=== PATIENT | male | born 1995 | race African-American/Black ===

== ENCOUNTER 2023-05-30 16:36 | Emergency (ER) | payer SELFPAY ==
--- OUTSIDE RECORDS SUMMARY | 2023-05-30 16:39 | XMS REPORT | Continuity of Care Document ---
:1995 Author Organization [facility] t Address [address] [place] [address] Care Team Providers Name Role Phone Pcp-None Primary Care Physician Unavailable LEONARDA GUALLPA Attending Clinician Unavailable Natasha Magallon Attending Clinician Unavailable ERIKA Attending Clinician Unavailable Steven ZEPEDA, Sheron Clarke Attending Clinician [phone] ERIKA Admitting Clinician Unavailable Payers Payer Name Policy Type Policy Number Effective Date Expiration Date S [place] [id number] 2016 2022 00:00:00 [place]PPO[place] 00:00:00 Problems Condition Condition Condition Status Onset Resolution Last Treating Co mments Source Name Details Category Date Date Treatment Clinician Date Homeless Homeless Disease Active Overview: [facility] g of this note might be different from the original. Resides at [facility]. Allergies, Adverse Reactions, Alerts Allergy Allergy Status Severity Reaction(s) Onset Inactive Treating Comm ents Source Name Type Date Date Clinician No Known DA Active U [facility] 04-02 Allergie 00:00: s 00 Social History Social Habit Start Date Stop Date Quantity Comments Source Sexual orientation [facility] History of tobacco Smokes tobacco [facility] use daily History of Social 2023-05-07 2023-05-07 [facility] function 00:00:00 00:00:00 Tobacco use and 2021-04-07 2021-04-07 Smokeless tobacco [facility] exposure 00:00:00 00:00:00 non-user Alcohol intake 2021-04-07 2021-04-07 Lifetime [facility] 00:00:00 00:00:00 non-drinker (finding) Sex Ass[birth year] At [birth year] Ron [facility] al[facility] 00:00:00 00:00:00 Smoking Status Start Date Stop Date Source Unknown if ever smoked [facility] Smokes tobacco daily 2021-04-07 00:00:00 [facility] Medications Ordered Filled Start Stop Current Ordering Indication Dosage Frequency Signature Comments Components Source Medication Medication Date Date Medication? Clinician (SIG) Name Name nicotine Yes 2mg Place 2 mg Yosvany ris polacrilex 4-[address] [facility] (NICORETTE) 18:27: cheek 2 mg Gum 59 every 2 hours. sulfamethox Yes 1{tbl} Take 1 Tab Univers azole-trime 6-27 by mouth ity of thoprim 00:00: every 12 [place] (BACTRIM 00 (twelve) Medical DS) 800-160 hours. Branch mg tablet proMETHazin Yes 25mg Take 1 Tab Univers e 6-27 by mouth ity of (PHENERGAN) 00:00: every 6 Berny as 25 mg 00 (six) Medical tablet hours as Branch needed for Nausea and Vomiting (N/V). traMADOL Yes 50mg Take 1 Tab Uni vers (ULTRAM) 50 6-27 by mouth ity of mg tablet 00:00: every 6 [place] 00 (six) Medical hours as Branch needed for Pain unrelieved by non-narcot ic analgesics . Immunizations Ordered Immunization Filled Immunization Date Status Commen ts Source Name Name PPD Unknown Completed [facility] Vital Signs Vital Name Observation Time Observation Value Comments Source Systolic blood 2019-08-21 00:09:00 146 mm[Hg] [facility] Diastolic blood 2019-08-21 00:09:00 88 [facility]Hg[facility] rate 2019-08-21 00:09:00 99 /min [facility] Respiratory rate 2019-08-21 00:09:00 14 /min [facility] Oxygen saturation in 2019-08-21 00:09:00 99 /min [facility] Arterial blood by [facility] Pulse oximetry Branch Body temperature 2019-08-20 23:02:00 37.17 Asia [facility] Body weight 2019-08-20 23:02:00 65.772 kg [facility] Procedures Procedure Date / Time Performing Clinician Source Performed URINALYSIS 2019-08-20 23:48:00 [facility]on [facility] COMP. METABOLIC PANEL 2019-08-20 23:47:00 Sheron Harris [facility] ([id number]) [facility] CBC WITH DIFFERENTIAL 2019-08-20 23:47:00 Sheron Harris [facility] ADC / LCC - DRUG SCREEN 2019-08-20 23:47:00 [facility] Plan of Care Planned Activity Planned Date Details Comments Source Future Scheduled Test 2023-03-04 IMM Influenza Seasonal [facility] 00:00:00 (>/= 19 yrs) [code = IMM Influenza Seasonal (>/= 19 yrs)] Future Scheduled Test 2002-02-01 Imm Pneumococcal 0-64 [facility] 00:00:00 (1 - PCV) [code = Imm Pneumococcal 0-64 (1 - PCV)] Future Scheduled Test 1995 COVID-19 Vaccine (#1) [facility] 00:00:00 [code = COVID-19 Vaccine (#1)] Encounters Start End Encounter Admission Attending Care Care Encounter Source Date/Time Date/Time Type Type Clinicians Facility Department ID 2021-04-02 Inpatient [facility] [id number] [facility] 10:27:00 62 2021-04-09 2021-04-[address] [facility] [id number] [place] 10:01:32 10:01:[address] [facility] 2021-04-07 2021-04-07 Outpatient [facility] [id number] [place] 11:03:11 13:34:09 [facility] 2021-04-02 2021-04-02 Emergency [facility] [id number] [facility] 10:27:00 10:27:00 62 2021-04-02 2021-04-[address] [place] [address] [id number] [place] 09:13:10 09:36:10 Health 2021-04-02 2021-04-02 Outpatient [facility] [id number] [place] 09:13:10 09:36:10 [facility] 2021-04-02 2021-04-02 Outpatient [facility] [id number] [place] 00:00:00 00:00:00 [facility] 2020-09-02 2020-09-02 Outpatient ERIKA [facility] 1017 [place] 10:06:00 10:06:00 0[facility] 2020-09-01 2020-09-01 Outpatient SIVA_R [facility] 1017 [place] 05:22:00 05:22:00 0301 [facility] 2019-08-20 2019-08-20 Emergency [place] [facility] [id number] [facility] 17:04:41 19:12:00 , Sheron Valdovinos [id number] i ty of Tricia Salcido [id number] [facility] [id number] [facility] 084 Branch Results Test Description Test Time Test Comments Results Result Comments Source SARS-CoV-2 ORF1ab Resp Ql SHARAD+probe 2021-04-02 15:18:32 Test Item Value Reference Range Interpretation Comme nts Symptomatic as defined by CDC? No (test code = 14082-2) Hospitalized? (test code = No 86793-4) ICU? (test code = 47640-3) No Employed in Healthcare? (test No code = 46716-5) Resident in a congregate care Yes setting (including nursing homes, residential care for people with intellectual and developmental disabilities, psychiatric treatment facilities, group homes, board and care homes, homeless group home, foster care or other): (test code = 36515-2) SARS-CoV-2 ORF1ab Resp Ql NOT DETECTED Not Detected IN TERPRETATION: No SHARAD+probe (test [place] = [place] [address]-9) SARS-CoV-2 Curtis navirus (COVID-19) were present in this patient's sample by this test. A no t detected result does not exclude the possibility of active infection with this virus due to other fa ctors that may affect the results such as a poorly col lected sample, viral t iters below the limit of de tection of the assay, and the infrequent poss ibility of inhibitors in t he sample. This result kalen uld be interpreted in conjunction with clinical, radiographic, a nd other laboratory find ings and should not be u sed as the sole indicator of active infection with SARS-CoV-2 Coronavirus (CO VID-19). COMMENT: This [employer] SARS-CoV-2 molecular diagnostic assay utilizes Paring Machine Operator Mediated Amplification (TMA) technology to rapidly detect the SARS-CoV-2 (COVID-19) virus from respiratory samples. In accordance with the FDA's guidance document "Policy for Diagnostic Tests for Coronavirus Disease- 2019 during the Public Health Emergency", this test was developed, and its performance characteristics were verified by the [facility] molecular diagnostics laboratory and is authorized for clinical diagnostic use. This laboratory is certified under the Clinical Laboratory Improvement Amendments (CLIA) as qualified to perform high complexity clinical laboratory testing.HHSUA, Urinalysis Rflx Cult/[id number] 10:50:00 Test Item Value Reference Range Interpretation Comments Color,Urine (test code = Yellow Y UCOL) Clarity,Urine (test code = Clear Clear UCLAR) PH,Urine (test code = 7.5 5.5-8.5 UPH.XX) Specific [place],Urine 1.025 1.005-1.030 N (test code = USG) Blood,Urine (test code = Negative cells/uL Negative UBLD) Protein,Urine (test code = Negative mg/dL Negative UPRO) Glucose,Urine (UA) (test Negative mg/dL Negative code = UGLU) Ketones,Urine (test code = Negative mg/dL Negative UKET) Nitrate,Urine (test code = Negative Negative UNIT) Bilirubin,Urine (test code Negative mg/dL Negative = UBIL) Urobilinogen,Urine (test 1.0 mg/dL Negative code = UURO) Leukocyte Esterase,Urine Negative cells/uL Negative (test code = ULEU) ADC / C - DRUG SCREEN [id number] 00:34:00 Test Item Value Reference Range Interpretation Comments BENZO U (test code = Negative Negative 8384156048) ALYSSA U (test code = Negative Negative 5301391388) AMPHET (test code = Presumptive Positive Negative A 1131419268) THC (test code = Negative Negative 7061372965) METHADONE (test code = Negative Negative 6281715536) Meth U (test code = Presumptive Positive Negative A 1186323488) OPIATES (test code = Negative Negative 7831416117) Cocaine Metabolite (test Negative Negative code = 9516915710) PROPOXY (test code = Negative Negative 6686480332) Tric U (test code = Negative Negative 5548901891) PCP (test code = Negative Negative 1090156163) OXYCOD (test code = Negative Negative 6267776268) ZANDER (test code = ZANDER) Urine Drug Cutoff Ranges Benzodiazepines: ? ? 150 ng/mLBarbiturates: ?200 ng/mLAmphetamine: ? 500 ng/mLCannabinoids: ?50 ?ng/mLMethadone: ? 200 ng/mLMethamphetamine: ? ? 500 ng/mL Opiates: ? 100 ng/mL or 2000 ng/mLCocaine: ? 150 ng/mLPropoxyphene: ?300 ng/mLTricyclics: ?300 ng/mLOxycodone: ? 100 ng/mLPCP: ? 25 ?ng/mL The results are to be used only for medical (i.e., treatment) purposes. Unconfirmed screening results must not be used for non-medical purposes (e.g., employment testing, legal testing). Lab Interpretation (test Abnormal code = 58878-2) [facility] Test Item Value Reference Range Interpretation Comments APPEARANCE (test code = Clear Clear 2333207159) COLOR (test code = Yellow Yellow 1814652357) PH (test code = 4.8-8.0 1335023514) SP GRAVITY (test code = 1.003-1.030 3504356157) GLU U QUAL (test code = Normal Normal 6492565585) BLOOD (test code = Negative Negative 2688230523) KETONES (test code = 20 mg/dL Negative A 5242776893) PROTEIN (test code = Negative Negative 2887-8) UROBILIN (test code = 4.0 mg/dL Normal A 9994735176) BILIRUBIN (test code = Negative Negative 9924971373) NITRITE (test code = Negative Negative 2793770960) LEUK JONATHON (test code = Negative Negative 1839833241) RBC/HPF (test code = See_Comment [Autom ated message] 4800317414) The system [employer] generated this result transmit jeromy reference range : 0 - 3 HPF. The refe rence range was not u sed to interpret th is result as normal/abnormal . WBC/HPF (test code = See_Comment [Autom ated message] 1831825527) The system [employer] generated this result transmit jeromy reference range : 0 - 5 HPF. The refe rence range was not u sed to interpret th is result as normal/abnormal . BACTERIA (test code = Negative Negative 8850568701) MUCOUS (test code = Slight Negative LPF A 5174326909) Lab Interpretation (test Abnormal code = 44921-8) [facility]. METABOLIC PANEL (58024)2019-08-21 00:16:00 Test Item Value Reference Range Interpretation Comments NA (test code = 137 mmol/L 135-145 8836521793) K (test code = 3.7 mmol/L 3.5-5 5389337571) CL (test code = 101 mmol/L 98-108 1730369235) CO2 TOTAL (test code = 24 mmol/L 23-31 0662546822) AGAP (test code = 2-16 2841881638) BUN (test code = 25 mg/dL 7-23 H 6495195926) GLUCOSE (test code = 114 mg/dL 70-110 H 7993097530) CREATININE (test code = 1.02 mg/dL 0.6-1.25 8759619160) TOTAL BILI (test code = 0.7 mg/dL 0.1-1.6 1986203320) CALCIUM (test code = 9.4 mg/dL 8.6-10.6 3339832771) T PROTEIN (test code = 7.7 g/dL 6.3-8.2 9944761116) ALBUMIN (test code = 5.0 g/dL 3.5-5 0958152038) ALK PHOS (test code = 92 U/L 34-122 2590715194) ALTv (test code = 23 U/L 5-50 1742-6) AST(SGOT) (test code = 46 U/L 13-40 H 4812149129) eGFR Calculation mL/min/1.73m2 (Non-) (test code = 2532995489) eGFR Calculation mL/min/1.73m2 () (test code = 0925598953) ZANDER (test code = ZANDER) Association of Glomerular Filtration Rate (GFR) and Staging of Kidney Disease* + --+ --+ ------+| GFR (mL/min/1.73 m2) ?| With Kidney Damage ?| ?Without Kidney Damage+ --------+ --------+ +| ?>90 ?| ?Stage one ?| ? Normal ?+ ---+ ---+ -------+| ?60-89 ?| ?Stage two ?| ? Decreased GFR ? + --+ --+ ------+| ?30-59 ?| ?Stage three ?| ? Stage three ? + --+ --+ ------+| ?15-29 ?| ?Stage four ? | ? Stage four ?+ ---+ ---+ -------+| ?<15 (or dialysis) ? ?| ?Stage five ? | ? Stage five ?+ ---+ ---+ -------+ *Each stage assumes the associated GFR level has been in effect for at least three months. ?Stages 1 to 5, with or without kidney disease, indicate chronic kidney disease. Notes: Determination of stages one and two (with eGFR >59mL/min/1.73 m2) requires estimation of kidney damage for at least three months as defined by structural or functional abnormalities of the kidney, manifested by either:Pathological abnormalities or Markers of kidney damage (including abnormalities in the composition of the blood or urine or abnormalities in imaging tests). Lab Interpretation Abnormal (test code = 72281-8) [facility] WITH [id number] 00:08:00 Test Item Value Reference Range Interpretation Comments WBC (test code = See_Comment H [Automated 6819-2) message] The sy stem which generated this result transmitted reference range : 4.20 - 10.70 10*3/?L. The reference range was not used to interpret this result as normal/abnormal . RBC (test code = See_Comment [Automated 449-8) message] The sy stem which generated this result transmitted reference range : 4.26 - 5.52 10*6/?L. The reference range was not used to interpret this result as normal/abnormal . HGB (test code = 14.9 g/dL 12.2-16.4 718-7) HCT (test code = 43.9 % 38.4-49.3 4544-3) MCV (test code = 86.4 fL 81.7-95.6 787-2) MCH (test code = 29.3 pg 26.1-32.7 785-6) MCHC (test code = 33.9 g/dL 31.2-35 786-4) RDW-SD (test code = 40.9 fL 38.5-51.6 09432-4) RDW-CV (test code = 13.0 % 12.1-15.4 788-0) PLT (test code = See_Comment [Automated 777-3) message] The sy stem which generated this result transmitted reference range : 150 - 328 10*3/ ?L. The reference r rickie was not used to interpret this result as normal/abnormal . MPV (test code = 10.2 fL 9.8-13 09295-1) NRBC/100 WBC (test See_Comment [Automat ed code = 8175090982) message] The system which generated this result transmitted reference range : 0.0 - 10.0 /100 WBCs. The refer ence range was not u sed to interpret th is result as normal/abnormal . NRBC x10^3 (test code <0.01 See_Comment [Auto mated = 6373952951) message] The s ystem which generated this result transmitted reference range : 10*3/?L. The reference range was not used to interpret this result as normal/abnormal . GRAN MAT (NEUT) % 76.5 % (test code = 770-8) IMM GRAN % (test code 0.30 % = 5445270398) LYMPH % (test code = 14.6 % 736-9) MONO % (test code = 6.7 % 5905-5) EOS % (test code = 0.9 % 713-8) BASO % (test code = 1.0 % 706-2) GRAN MAT x10^3(ANC) 9.03 10*3/uL 1.99-6.95 H (test code = 4783707207) IMM GRAN x10^3 (test 0.04 10*3/uL 0-0.06 code = 9680707599) LYMPH x10^3 (test code 1.73 10*3/uL 1.09-3.23 = 731-0) MONO x10^3 (test code 0.79 10*3/uL 0.36-1.02 = 742-7) EOS x10^3 (test code = 0.11 10*3/uL 0.06-0.53 711-2) BASO x10^3 (test code 0.12 10*3/uL 0.01-0.09 H = 704-7) Lab Interpretation Abnormal (test code = 21478-8) [facility] [address] [place] [address] Patient Name: Claire Chou Medical Record#: [id number] Address: [address] [place] [address] City/State/Zip: [place] [address]: Natasha Magallon MD Insurance: Self Pay /Age/Sex: 1995/26/M Admit/Reg Date: 04/02/[address]: Willie Tabares NP Lo cation: SJMED/ PCP: PcpMd DUANE Poon Date of Service: 04/02/21 Order (s): CT abdomen pelvis wo con CPT Code: 66871 Report Number: [id number] Reason for Exam: Flank Pain EXAMINATION: CT abdomen pelviswo con CLINICAL INDICATION: Male, 26 years old with Flank Pain TECHNIQUE: Thin section axial noncontrast contiguous images were obtained through the abdomen and pelvis followed by coronal and sagittal multiplanar reformations. One or more of the following dose reduction techniques were used: Automatedexposure control, adjustment of the mA and/or kV according to patient size, and/or iterative reconstruction. COMPARISON: None FINDINGS: Characterization of the solid organs is limited by lack of contrast media. Lower Chest: Partially calcified granuloma noted within the left lower lobe. Heart is normal in size. No pericardial or pleural effusion. Liver: Normal in size and contour. Bile ducts are of normal caliber. Gallbladder: No stones, wall thickening, or pericholecystic fluid. Pancreas: Normal appearance. Spleen: Normal in size and contour. Adrenals: Normal configuration. Kidneys and ureters: Normal size and contour. No calculus or hydronephrosis. Bladder/Reproductive Organs: Normal in appearance. Unremarkable reproductive organs Bowel: Loops of bowel without wall thickening or obstruction. Normal appendix. No free air, free fluid, or fluid collection. Lymph nodes: There are no pathologicallyenlarged abdominopelvic lymph nodes. Retroperitoneum: No mass or hemorrhage. Abdominal aorta and inferior vena cava are normal in course and caliber. Abdominal wall: No hernia or mass. Bones: No acute abnormality or suspicious bony lesion. IMPRESSION: No acute abdominopelvic abnormality. Electronically signed by: Yobani Mackey MD 04/02/2021 12:28 PM CDT Dictated By: Yobani Mackey MD 04/02/211214 Signed By: Yobani Mackey MD 04/02/215 TD/TT: 04/02/211214 Tech: [facility] cc: OCAAL; PCPNO* Willie Tabares NP; Pcp-Md DUANE Betancourt Notes Date/Time Note Provider Source 2021-04-02 10:50:00 [id number]:50:00 [facility] [address] [place] [address] Emergency Department Document Signed Patient: Claire Chou Medical Record#: [id number] : 1995 Acct:[id number] Age/Sex: 26 / M Admit/Reg Date: 04/02/21 Loc: [facility] Room: Report Number: [id number] Attending Dr: Natasha Magallon MD Arrival - Arrival ED Triage Note: patient c/o right flank pain for past 2 days. denies any injury. no active vomiting History of Present Illness Nursing note reviewed: Yes Source: patient Exam/History Limitations: no limitations Primary Care Provider: Pcp-Md Serafin Chief Complaint: Abdominal Pain Stated Complaint : Side Flank Pain History of Present Illness: 26-year-old male without significant past medica l history, presents with complain of right flank pain, onset of symptoms 2 days ago. Pain radiate s from right flank area to right lateral abdomen, pain is intermittently, comes and goes. Patient reports straining during urination. No dysuria, no hematuria. Patient denies fever or chills. No nausea, no vomiting. Awake, alert, and oriented, ambulatory, in no acute distress. (Willie Tabares ) Allergies/Adverse Reactions: No Known Drug Allergies Allergy (Verified 04/02/21 10:30) Review of Systems All Other Systems (except as marked in HPI): Reviewed and Negative Family/Social History - Social History Living Situation: Private Home Smoking Status: Current some day smoker Smoked/Used Tobacco in the Last 30 Days?: Yes 1. How Often Do You Have a Drink Containing Alcohol: a. Never Physical Exam General Appearance: NAD Head: Atraumatic, Normocephalic Eyes: PERRL, EOMI Mouth/Throat: Mucosa moist, Pharynx normal, Uvula midline Respiratory: No respiratory distress, Lungs clear, No accessory muscle use Cardiovascular: R/R/R, No Murmurs, No S3/S4 gallops Abdominal: Soft, Non-tender, Non-distended, No organomegaly , No guarding, No Rebound tenderness Back: R CVAT Extremity/Musculoskeletal: No edema Skin: Warm, Dry Psych: Calm, No SI/HI Neuro: A O X 3, Nonfocal, Motor grossly normal, Sensory grossly normal, Gait normal, Cerebellar nl, DTR's grossl y nl, Speech fluent, CN 2-12 intact, No pronator drift Triage Vital Signs: Temperature 36.4 C 04/02/21 10:30 Temperature Source Oral 04/02/21 10:30 Pulse Rate 67 04/02/21 10:30 Blood Pressur e 128/76 04/02/21 10:30 Blood Pressure Source Automatic Cuff 04/02/21 10:30 Blood Pressure Dory n 93 04/02/21 10:30 02 Sat by Pulse Oximetry 98 04/02/21 10:30 Oxygen Delivery Method 04/02/21 10:30 Pain Intensity 8 04/02/21 10:30 Results/Orders - Results and Orders Lab Testing Results 04/02/21 10:50: Urine Color Yellow, Urin e Clarity Clear, Urine pH 7.5, Ur Specific [place] 1.025, Urine Protein Negative, Urine Glucose (UA ) Negative, Urine Ketones Negative, Urine Blood Negative, Urine Nitrate Negative, Urine Bilirubi n Negative, Urine Urobilinogen 1.0, Ur Leukocyte Esterase Negative Radiology Orders: Radiology Orders 04/02/21 10:44 CT abdomen pelvis wo con Stat MDM/COURSE Vital Signs Temperature 36.4 C 04/02/21 10:30 Pulse Rate 67 04/02/21 10:30 Bloo d Pressure 128/76 04/02/21 10:30 02 Sat by Pulse Oximetry 98 04/02/21 10:30 Temperature 36.4 C 04/02/21 10:30 Pulse Rate 67 04/02/21 10:30 Bloo d Pressure 128/76 04/02/21 10:30 02 Sat by Pulse Oximetry 98 04/02/21 10:30 - [facility] Medical Decisio n Making Narrative: 04/02/21 12:54 CT scan showed no evidence of kidney stones or other acute abnormalities, urinalysis no evidence ofUTI. Patient's abdomen is soft and nontender, no nausea or vomiting, no skin rashes, likely musculoskeletal pain. Notified findings, Recommended to follow-up with PCP/[facility] for re-evaluation Instructed to return to the ED if current symptoms worsen (Willie Tabares ) Discharge Plan - Discharge Clinical Impression: Right flank pain Disposition: Home or Self-Care Condition: Good Instructions: ED Flank Pain, Uncertain Cause Prescriptions: New naproxen 500 MG tablet 500 mg PO BID 7 Days Qty: 14 RF: 0 Prescription Printed Referrals: [facility] [Other] Pcp-Sreafin,MD Duane [Primary Care Provider] - Print Language: Gambian - Discharge Data Time Seen by Provider: 04/02/21 10:28 Dictated By: Willie Tabares NP Signed By: Willie Tabares NP 04/02/21 1527 Natasha Magallon MD 04/04/21 1033 DD/ 1050 TD/TT: 04/02/21 1050 Coagulator: GOGO cc: SARAI* Pcp-Md Sunita Betancourt Physician DocumentationPerry BolesEguglrTxaztaOmvfuc4504-33-63Y55:50:00P.EDAVAvail a ble for patient catgMBRCXVqRJIXm1313-89-31L60:35:02
[2023-05-30] MEDS ORDERED: IBUPROFEN 400 MG TAB ONE (17:49)
[2023-05-30] MEDS ORDERED: LIDOCAINE 2% MPF 5 ML VIAL ONE (17:49)
--- NOTE | 2023-05-30 18:21 | RAD REPORT ---
EXAM DESCRIPTION: RAD - Foot Left 2 View - 05/30/2023 5:17 pm CLINICAL HISTORY: foreign body COMPARISON: No comparisons TECHNIQUE: Left foot, 3 views. FINDINGS: Triangular radiopaque 1.5 cm body along the lateral midfoot soft tissues. Adjacent soft ti ssue swelling. No fracture, dislocation or periosteal reaction. Joint alignment is maintained. No suspicious osseous lesions. IMPRESSION: Lateral midfoot foreign body as above. Adjacent tissue swelling.
--- NOTE | 2023-05-30 19:18 | EDPHYS ---
Physician Documentation [facility] Name: Claire Chou Age: 28 yrs Sex: Male : 1995 Arrival Date: 05/30/2023 Time: 16:36 Bed 10 Private MD: ED Physician Yobani Curry HPI: 05/30 17:00 This 28 yrs old Black Male presents to ER via Ambulatory with complaints of Foreign cp body in foot. 17:00 The patient presents with a puncture wound, piece of glass. The complaints affect the cp lateral side of left foot. 17:00 Associated signs and symptoms: The patient has no apparent associated signs or symptoms.cp 17:00 Context: reports broken glass found in bed caused injury and concerned that piece of cp glass remains in foot. Onset: The symptoms/episode began/occurred today. Historical: - Allergies: 16:48 No Known Allergies; mb9 - Home Meds: 16:48 None [Active]; mb9 - PMHx: 16:48 None; mb9 - PSHx: 16:48 None; mb9 - Immunization history:: Adult Immunizations up to date. - Social history:: Smoking status: Patient denies any tobacco usage or history of. ROS: 17:05 MS/extremity: Positive for puncture, of the lateral side of left foot, foreign body, cp 17:05 All other systems are negative, cp Exam: 17:10 Constitutional: The patient appears in no acute distress, alert, awake, well developed, cp well nourished, uncomfortable, 17:10 Head/Face: Normocephalic, atraumatic. cp 17:10 Chest/axilla: Inspection: normal, 17:10 Cardiovascular: Rate: normal, 17:10 Respiratory: the patient does not display signs of respiratory distress, Respirations: normal, no use of accessory muscles, no retractions, labored breathing, is not present, 17:10 Abdomen/GI: Inspection: abdomen appears normal, 17:10 Musculoskeletal/extremity: Extremities: noted in the left foot: puncture wound noted dorsum, lateral side mid fifth metatarsal with mild bleeding, palpable foreign body under skin noted, Vital Signs: 16:48 BP 128 / 86; Pulse 87; Resp 18; Temp 98; Pulse Ox 100% ; Weight 70.31 kg; Height 5 ft. mb9 9 in. ; Pain 5/10; 19:16 BP 141 / 94; Pulse 78; Resp 16; Pulse Ox 100% on R/A; me1 16:48 Body Mass Index 22.89 (70.31 kg, 175.26 cm) mb9 16:48 Pain Scale: Adult mb9 Procedures: 21:59 Foreign Body Removal: a fragment of glass, from the left left foot, by using a rt hemostat, Dressing: none, The patient tolerated the removal well. MDM: 16:50 Patient medically screened. cp 18:00 Differential diagnosis: fracture, foreign body, puncture wound. 19:16 Data reviewed: vital signs, nurses notes, radiologic studies, plain films. 19:16 I considered the following discharge prescriptions or medication management in the emergency department Medications were administered in the Emergency Department. See MAR. Counseling: I had a detailed discussion with the patient and/or guardian regarding the historical points, exam findings, and any diagnostic results supporting the discharge/admit diagnosis, radiology results, to return to the emergency department if symptoms worsen or persist or if there are any questions or concerns that arise at home. Response to treatment: the patient's symptoms have markedly improved after treatment, and as a result, I will discharge patient. Special discussion: I discussed in detail with the patient the higher chance of wound infection based on his presenting history. 05/30 16:55 Order name: XRAY Foot LEFT 2 View 05/30 18:34 Order name: XRAY Foot LEFT 2 View 05/30 19:16 Order name: Wound dressing; Complete Time: 19:24 cp Administered Medications: 17:41 Drug: Ibuprofen PO 800 mg PO once Route: PO; me1 19:22 Follow up: Response: No adverse reaction; Pain is decreased me1 17:41 Drug: Lidocaine-Epinephrine Infiltration -2 % (1:100,000) 10 ml Infiltration once; to me1 bedside {Note: by YOUNG Persaud.} Route: Infiltration; 19:24 Drug: Trimethoprim-Sulfamethoxazole PO (160 mg-800 mg (DS) 1 tablet PO once Route: PO; me1 19:33 Follow up: Response: No adverse reaction me1 Disposition: 21:59 Co-signature as Attending Physician, Yobani Curry MD I reviewed the patient's care rt provided by Advanced Practice Provider \T\ agree w/ the diagnosis \T\ care plan. I personally saw the pt \T\ performed a substantive portion of the visit, incldng all aspects of the (History/Exam/Medical Decision Making). I evaluated the patient's foot, x-ray. I personally remove the foreign body, it appears to be intact.. Disposition Summary: 05/30/23 19:17 Discharge Ordered Notes: Location: Home cp Problem: new cp Symptoms: have improved cp Condition: Stable cp Diagnosis - Puncture wound with foreign body, left foot cp Followup: cp - With: Emergency Department - When: As needed - Reason: Worsening of condition Discharge Instructions: - Discharge Summary Sheet cp - Puncture Wound cp - Hand or Foot Foreign Body, Adult cp Forms: - Medication Reconciliation Form cp - Thank You Letter cp - Antibiotic Education cp - Prescription Opioid Use cp - Patient Portal Instructions cp - Leadership Thank You Letter cp Prescriptions: - Ibuprofen 800 mg Oral Tablet - take 1 tablet ORAL route every 8 hours As needed take with food; 30 tablet; cp Refills: 0, Product Selection Permitted - Bactrim DS 800-160 mg Oral Tablet - take 1 tablet ORAL route every 12 hours for 7 days; 14 tablet; Refills: 0, cp Product Selection Permitted Addendum: 05/31/2023 20:23 Co-signature as Attending Physician, Yobani Curry MD I reviewed the patient's care r t provided by the Advanced Practice Provider and agree with the diagnosis and treatment plan. Signatures: Dispatcher [employer] Jj Hackett PA PA cp Breneman, Mary Beth RN RN mb9 Yobani Curry MD MD rt Maribel Spicer RN RN me1
--- NOTE | 2023-05-30 19:18 | ER ---
Nurse's Notes [facility] Name: Claire Chou Age: 28 yrs Sex: Male : 1995 Arrival Date: 05/30/2023 Time: 16:36 Bed 10 Private MD: Diagnosis: Puncture wound with foreign body, left foot Presentation: 05/30 16:48 Chief complaint: Patient states: "I woke up this morning and I think there is a piece mb9 of glass in my left foot". Coronavirus screen: At this time, the client does not indicate any symptoms associated with coronavirus-19. Ebola Screen: No symptoms or risks identified at this time. Initial Sepsis Screen: Does the patient meet any 2 criteria? No. Patient's initial sepsis screen is negative. Does the patient have a suspected source of infection? No. Patient's initial sepsis screen is negative. Risk Assessment: Do you want to hurt yourself or someone else? Patient reports no desire to harm self or others. Onset of symptoms was May 30, 2023. 16:48 Method Of Arrival: Ambulatory mb9 16:48 Acuity: JAYE 4 mb9 Triage Assessment: 16:49 General: Appears in no apparent distress. Behavior is calm, cooperative. Pain: mb9 Complains of pain in left foot. EENT: No signs and/or symptoms were reported regarding the EENT system. Neuro: Fischer Agitation-Sedation Scale (RASS): 0 - Alert and Calm Level of Consciousness is awake, alert, obeys commands, Oriented to person, place, time, situation, Appropriate for age. Cardiovascular: Patient's skin is warm and dry. Respiratory: Airway is patent Respiratory effort is even, unlabored, Respiratory pattern is regular, symmetrical. GI: No signs and/or symptoms were reported involving the gastrointestinal system. : No signs and/or symptoms were reported regarding the genitourinary system. Derm: Skin is pink, warm \\T\\ dry. Musculoskeletal: Range of motion: intact in all extremities. Historical: - Allergies: 16:48 No Known Allergies; mb9 - Home Meds: 16:48 None [Active]; mb9 - PMHx: 16:48 None; mb9 - PSHx: 16:48 None; mb9 - Immunization history:: Adult Immunizations up to date. - Social history:: Smoking status: Patient denies any tobacco usage or history of. Screenin:06 [facility] ED Fall Risk Assessment (Adult) History of falling in the last 3 months, me1 including since admission No falls in past 3 months (0 pts) Confusion or Disorientation No (0 pts) Intoxicated or Sedated No (0 pts) Impaired Gait No (0 pts) Mobility Assist Device Used No (0 pt) Altered Elimination No (0 pt) Score/Fall Risk Level 0 - 2 = Low Risk Maintained a safe environment, Provided non-skid footwear, Hourly rounding (assess needs \\T\\ fall precautionary measures) done. Abuse screen: Denies threats or abuse. Nutritional screening: No deficits noted. Tuberculosis screening: No symptoms or risk factors identified. Assessment: 18:06 General: Appears uncomfortable, well groomed, well developed, well nourished, Behavior me1 is calm, cooperative, appropriate for age, Reports "I woke up this morning and I think there is a piece of glass in my left foot". Pain: Complains of pain in left foot Pain does not radiate. Pain currently is 7 out of 10 on a pain scale. Quality of pain is described as sharp, stabbing, Pain began suddenly, this morning about 7 am. Is continuous. Neuro: Level of Consciousness is awake, alert, obeys commands, Oriented to person, place, time, situation, Appropriate for age. Cardiovascular: Capillary refill < 3 seconds Patient's skin is warm and dry. Respiratory: Airway is patent Respiratory effort is even, unlabored, Respiratory pattern is regular, symmetrical. Derm: Wound noted left foot Wound is small wound with a piece of glass in lateral side of left foot. Vital Signs: 16:48 BP 128 / 86; Pulse 87; Resp 18; Temp 98; Pulse Ox 100% ; Weight 70.31 kg; Height 5 ft. mb9 9 in. ; Pain 5/10; 19:16 BP 141 / 94; Pulse 78; Resp 16; Pulse Ox 100% on R/A; me1 16:48 Body Mass Index 22.89 (70.31 kg, 175.26 cm) mb9 16:48 Pain Scale: Adult mb9 ED Course: 16:39 Patient arrived in ED. mr 16:41 Jj Maldonado PA is PHCP. cp 16:41 Yobani Curry MD is Attending Physician. cp 16:47 Arm band placed on. mb9 16:49 Triage completed. mb9 17:18 XRAY Foot LEFT 2 View In Process Unspecified. EDMS 17:31 Maribel Spicer, RN is Primary Nurse. me1 18:06 Patient has correct armband on for positive identification. Bed in low position. Call me1 light in reach. Side rails up X 1. Provided Education on: POC.Verbalized understanding.. 18:06 No provider procedures requiring assistance completed. Patient did not have IV access me1 during this emergency room visit. 19:02 XRAY Foot LEFT 2 View In Process Unspecified. EDMS Administered Medications: 17:41 Drug: Ibuprofen PO 800 mg PO once Route: PO; me1 19:22 Follow up: Response: No adverse reaction; Pain is decreased me1 17:41 Drug: Lidocaine-Epinephrine Infiltration -2 % (1:100,000) 10 ml Infiltration once; to me1 bedside {Note: by YOUNG Persaud.} Route: Infiltration; 19:24 Drug: Trimethoprim-Sulfamethoxazole PO (160 mg-800 mg (DS) 1 tablet PO once Route: PO; me1 19:33 Follow up: Response: No adverse reaction me1 Medication: 18:06 VIS not applicable for this client. me1 Outcome: 19:17 Discharge ordered by MD. cp 19:33 Discharged to home ambulatory, with family, me1 19:33 Condition: stable 19:33 Discharge instructions given to patient, family, Instructed on discharge instructions, follow up and referral plans. medication usage, Demonstrated understanding of instructions, follow-up care, medications, Prescriptions given X 2, 19:33 Patient left the ED. me1 Signatures: Dispatcher [employer] EDMO Qi Chand, Reg Reg mr Jj Maldonado PA PA cp Breneman, Mary Beth, RN RN mb9 Maribel Spicer, LUCY RN me1 Corrections: (The following items were deleted from the chart) 18:06 16:48 Chief complaint: Patient states: "I woke up this morning and I think there is a me1 piece of glass in my left foot" mb9
[2023-05-30] MEDS ORDERED: SMZ./TMP. 800/160 MG TABLET ONE (19:37)
--- NOTE | 2023-05-30 19:59 | RAD REPORT ---
EXAM DESCRIPTION: RAD - Foot Left 2 View - 05/30/2023 7:01 pm CLINICAL HISTORY: post foreign body removal COMPARISON: Foot Left 2 View dated 05/30/2023 TECHNIQUE: Left foot, 3 views. FINDINGS: No fracture, dislocation or periosteal reaction. No air or foreign body in the soft tissues. Soft tissue swelling about the lateral midfoot. IMPRESSION: No residual radiopaque foreign body.
[2023-05-30 20:17] VITALS: TEMP 98; O2SAT 100
[2023-05-30 20:18] VITALS: BP 141/94
== END 2023-05-30 19:33 | disposition home or self-care (01) ==
LOC: ER 16:36
DX: S91.342A Puncture wound with foreign body, left foot, initial encounter (principal)
CPT/HCPCS: 99283; J2001